=== PATIENT | male | born 1935 | race Two or more races ===

== ENCOUNTER 2021-11-02 12:58 | Inpatient (IN) | payer OTHER ==
[~2021-11-02] VITALS: Ht 177.8 cm; Wt 68.0 kg
[~2021-11-02 12:58] MED LIST: AMLODIPINE BESYL5 MG; APETIGEN P12.5 MG/15; CENTRUM SILVER1 EAC1; CETIRIZINE HCL10 MG; CLONAZEPAM0.5 MG; COZAAR100 MG; DECADRON6 MG PO; FERROUS SULFAT325 MG; FOLIC ACID1 MG; LOSARTAN-HCTZ1 EAC2 PO; MAXIMUM D3325 MCG; METOPROLOL TAR100 MG; PENTOXIFYLLINE400 MG; PLAVIX75 MG; SIMVASTATIN20 MG; ST. JOSEPH ASPI81 M2; SYNTHROID75 MCG; TOPROL XL100 M1 PO; TOPROL XL50 M1; XARELTO2.5 MG
[2021-11-06] MEDS ORDERED: MAXIMUM D3325 MCG (08:08)
[2021-11-06] MEDS ORDERED: XARELTO2.5 MG (08:08)
[2021-11-06] MEDS ORDERED: CENTRUM SILVER1 EAC1 (08:08)
[2021-11-06] MEDS ORDERED: FOLIC ACID1 MG (08:08)
== END 2021-11-12 06:44 | disposition expired | DRG 177 ==
LOC: ER 12:58 → MEDJ 11-03 15:07
PROVIDERS: ADMIT Internal Medicine; ATTEND Internal Medicine
PROC: 4A12X45 Monitoring of Cardiac Electrical Activity, Ambulatory, External Approach (ICD-10-PCS; principal; 2021-11-03)
PROC: 5A0945A Assistance with Respiratory Ventilation, 24-96 Consecutive Hours, High Flow/Velocity Cannula (ICD-10-PCS; 2021-11-03)
PROC: 02HV33Z Insertion of Infusion Device into Superior Vena Cava, Percutaneous Approach (ICD-10-PCS; 2021-11-05)
DX: U07.1 COVID-19 (principal); J12.82 Pneumonia due to coronavirus disease 2019; A41.9 Sepsis, unspecified organism; R65.21 Severe sepsis with septic shock; I21.A1 Myocardial infarction type 2; J96.01 Acute respiratory failure with hypoxia; B37.1 Pulmonary candidiasis; N17.9 Acute kidney failure, unspecified; E87.0 Hyperosmolality and hypernatremia; U09.9 Post COVID-19 condition, unspecified; L89.311 Pressure ulcer of right buttock, stage 1; L89.622 Pressure ulcer of left heel, stage 2; L89.612 Pressure ulcer of right heel, stage 2; J22 Unspecified acute lower respiratory infection; E87.6 Hypokalemia; E11.65 Type 2 diabetes mellitus with hyperglycemia; E86.0 Dehydration; I11.9 Hypertensive heart disease without heart failure; J44.9 Chronic obstructive pulmonary disease, unspecified; Y95 Nosocomial condition; F03.90 Unspecified dementia, unspecified severity, without behavioral disturbance, psychotic disturbance, mood disturbance, and anxiety; Z66 Do not resuscitate; Z78.1 Physical restraint status